=== PATIENT | female | born 2000 | race Caucasian/White ===

== ENCOUNTER 2021-08-20 21:13 | Emergency (ER) | payer OTHER ==
[~2021-08-20 21:13] MED LIST: AEROCHAMBER1 EA XX; AUGMENTIN 875-1 EACH PO; KEFLEX CAP 500500 MG PO; PRENATA CHEWAB1 EACH PO; PROVENTIL HFA6.7 GM INH; PYRIDIUM100 MG PO; VENTOLIN HFA 66.7 GM INH; ZITHROMAX250 MG PO; ZOFRAN ODT 4 MG4 MG PO
[2021-08-20] MEDS ORDERED: CEPHALEXIN500 MG PO (21:54)
== END 2021-08-20 22:20 | disposition home or self-care (01) ==
LOC: ER1 21:13
DX: O99.713 Diseases of the skin and subcutaneous tissue complicating pregnancy, third trimester (principal); L73.9 Follicular disorder, unspecified; L03.113 Cellulitis of right upper limb; Z3A.33 33 weeks gestation of pregnancy
CPT/HCPCS: 99283

== ENCOUNTER 2021-10-02 12:19 | Outpatient (CLI) | payer OTHER ==
[~2021-10-02 12:19] MED LIST changes: +CEPHALEXIN500 MG PO
[2021-10-02 13:07] LABS: HEMOGLOBIN 10.9 gm/dl (12.3-15.3); RED BLOOD COUNT 4.12 M/UL (4.00-5.10); WHITE BLOOD COUNT 14.6 K/UL (4.5-11.0)
[2021-10-03] MEDS ORDERED: IBUPROFEN800 MG PO (10:31)
[2021-10-03] MEDS ORDERED: DOCUSATE SODIU100 MG PO (10:31)
[2021-10-03] MEDS ORDERED: HYDROCODON-ACE1 EAC2 PO (10:31)
== END 2021-10-02 13:25 | disposition home or self-care (01) ==
LOC: GENOP 12:19
PROVIDERS: Obstetrics & Gynecology
DX: Z01.812 Encounter for preprocedural laboratory examination (principal); Z20.822 Contact with and (suspected) exposure to COVID-19
CPT/HCPCS: 36415; 81001; 85025; U0002

== ENCOUNTER 2021-10-02 19:55 | Inpatient (IN) | payer OTHER ==
[~2021-10-02] VITALS: Ht 154.9 cm; Wt 102.5 kg
[2021-10-02 21:38] LABS: HEMOGLOBIN 10.6 gm/dl (12.3-15.3); RED BLOOD COUNT 3.92 M/UL (4.00-5.10)
[2021-10-03] MEDS ORDERED: DOCUSATE SODIU100 MG PO (10:31)
[2021-10-03] MEDS ORDERED: IBUPROFEN800 MG PO (10:31)
[2021-10-03] MEDS ORDERED: HYDROCODON-ACE1 EAC2 PO (10:31)
[2021-10-04 04:06] LABS: HEMOGLOBIN 9.8 gm/dl (12.3-15.3)
== END 2021-10-04 17:42 | disposition home or self-care (01) | DRG 788 ==
LOC: GENOP 19:55 → OB 20:39
PROVIDERS: Obstetrics & Gynecology; ADMIT Obstetrics & Gynecology
PROC: 10D00Z1 Extraction of Products of Conception, Low, Open Approach (ICD-10-PCS; principal; 2021-10-02)
PROC: 4A1HXCZ Monitoring of Products of Conception, Cardiac Rate, External Approach (ICD-10-PCS; 2021-10-02)
DX: O99.214 Obesity complicating childbirth (principal); E66.9 Obesity, unspecified; Z3A.39 39 weeks gestation of pregnancy; Z37.0 Single live birth; Z20.822 Contact with and (suspected) exposure to COVID-19
CPT/HCPCS: 36415; 81001; 82247; 82248; 82565; 82570; 82800; 84156; 84450; 84460; 84550; 85014; 85018; 85025; 85379; 85384; 85610; 85730; C9113; J0690; J1885; J2274; J2370; J2405; J2590; J3010; J7120